=== PATIENT | female | born 1995 | race African-American/Black ===

== ENCOUNTER 2020-12-26 12:52 | Inpatient (IN) | payer MEDICAID ==
[2020-12-26] VITALS (36 sets, daily range): BP systolic 99–143; BP diastolic 49–82; PULSE 67–108; TEMP 96.7–98.1
[~2020-12-26] VITALS: Ht 154.9 cm; Wt 109.1 kg
[~2020-12-26 12:52] MED LIST: MOTRIN 600600 MG/TAB PO; PERCOCET 325 MG1 TA2 PO; PRENATAL1 TA2 PO
--- NOTE | 2020-12-26 13:00 | NUR ---
1300- Pt arrives on unit ambulatory via wheelchair, complaints of contractions since last night. Pt into bathroom to change into gown. 1309- Pt into bed, EFM and TOCO on and tracing well. O2 sat monitor on and tracing maternal HR. Pt very uncomfortable with contractions, crying. Pt reports pink discharge, denies ROM. +FM per Pt. Assessments completed. VSS.
[2020-12-26] MEDS ORDERED: PRENATAL TABLET PO (13:27)
[2020-12-26 13:58] LABS: BASO % 0.2 % (0.0-2.0); EOS # 0.1 (0.0-0.7); EOS % 0.4 % (0-4.0); GRAN % 77.4 % (42.2-75.2); HEMATOCRIT 38.4 % (37.0-47.0); HEMOGLOBIN 12.8 g/dl (12.5-16.0); LYMPH # 2.5 (1.2-3.4); LYMPH % 14.7 % (20.0-51.0); MEAN CELL VOLUME 88 fl (80.0-100.0); MEAN CORPUSCULAR HEMOGLOBIN 29 pg (27.0-31.0); MEAN CORPUSCULAR HGB CONC 33 g/dl (33.0-37.0); MEAN PLATELET VOLUME 11.3 fl (7.4-10.4); MONO # 1.2 (0.1-0.6); MONO % 6.9 % (1.7-9.3); PLATELET COUNT 308 K/mm3 (130-400); RED BLOOD COUNT 4.35 M/mm3 (4.10-5.30); REDCELL DISTRIBUTION WIDTH-CV 14.4 % (11.5-14.5)
--- NOTE | 2020-12-26 14:15 | NUR ---
1402- GREGG Davis at bedside for epidural placement. Pt assisted to sitting on side of bed. 1406- Single shot by AGING BOX HAND. 1412- Pt assisted to semi-fowlersKITA. EFM and TOCO adjusted.
[2020-12-26 15:55] LABS: TRICYCLIC ANTIDEPRESS URINE NEGATIVE
--- NOTE | 2020-12-26 17:20 | NUR ---
RN at bedside performing pericare. Pt reports "sharp" pain to vaginal area. Presses anesthesia bolus botton. Pt repositioned sitting upright. 172- Pt repositioned sitting upright HF. FHR noted in the 70s. Pt repositioned RL. Pitocin shut off. O2 monitored to differentiated MHR from FHR. SVE per this RN /-2. O2 appliied via simple mask. 1725-FHr returns to [address] Monahan notified of 3 minute FHR in the -s. Interventions performed. Provider will be on route to unit. 1735-Dr. Monahan on unit. Reviews FHR strip.
--- NOTE | 2020-12-26 17:41 | NUR ---
SVE per Dr. Monahan /2. Orders to d/c O2. Keep pitocin off until further notice.
--- NOTE | 2020-12-26 18:15 | NUR ---
REPORT RECEIVED FROM KYLE Jones RN AT 181. PATIENT RESTING IN BED. PATIENT WAS THROWING UP AT 1900 AND ZOFRAN WAS GIVEN AND A SVE WAS DONE. SVE /. AT 1940 PATIENT WAS SLEEPING AND VOMITING SUBSIDED. DR. GORDILLO CALLED FOR AN UPDATE
--- NOTE | 2020-12-26 19:08 | NUR ---
Patient sitting up in bed vomiting. Difficult tracing heart tones due to maternal position. One contraction palpated. Will continue to monitor.
--- NOTE | 2020-12-26 21:23 | NUR ---
DIFFICULTY TRACING HEART TONES AND CONTRACTIONS DUE TO MATERNAL POSITION. RN AT BEDSIDE.
[2020-12-27] VITALS (8 sets, daily range): BP systolic 110–150; BP diastolic 63–90; PULSE 75–98; TEMP 97.7–98.7
--- NOTE | 2020-12-27 08:00 | NUR ---
THIS NURSE NOTIFIES SOCIAL WORK OF PATIENT HAVING LATE CARE, PATIENT HAS POSITIVE UDS IN JULY AND ON ADMISSION 12/26/20. PATIENT MISSED MULTIPLE APPOINTMENTS AT OFFICE. WEE BAG ON BABY.
--- NOTE | 2020-12-27 10:20 | NUR ---
BRITTANY FIORE ANSWERED CALL LIGHT AND WENT TO PATIENTS ROOM. PATIENT STERNLY STATES " WHEN IS MY BABY'S HEART TEST, HEARING SCREEN AND LAB TEST? I WILL BE GOING HOME TONIGHT." ADEBAYO STATES THE LABS WILL BE DONE AT 24 HOURS OF AGE, THE HEARING SCREEN WILL BE DONE ANYTIME. ADEBAYO STATES YOUR NURSE WILL COME IN.. THIS NURSE WENT TO 208 AND ASKED IF PATIENT HAD QUESTIONS. PATIENT STATES, " ME AND MY BABY WILL BE LEAVING AT 1130 TONIGHT." THIS NURSE STATES DR GORDILLO AND DR OLMEDO WANT YOU TO STAY HERE IN THE HOSPITAL. PATIENT STATES " ME AND THE BABY ARE LEAVING AT 1130" THIS NURSE STATES, LEGALLY THE BABY CANNOT LEAVE, YOU CAN LEAVE AMA. PATIENT STATES" YOU LEGALLY CANNOT KEEP US HERE." THIS NURSE STATES I AM JUST DOING MY JOB. HELPER/DRIVER NOTIFIED
--- NOTE | 2020-12-27 10:30 | NUR ---
SOCIAL WORK AND HOUSE SUPERVISER ON UNIT DISCUSSING PLAN OF CARE
--- NOTE | 2020-12-27 13:48 | NUR ---
PATIENT WALKED OFF UNIT AND RETURNED 15 MINUTES LATER
--- NOTE | 2020-12-27 14:50 | NUR ---
SW Consult for HX of Marijuana. #[id number] 12/27/2020 ANN staffed with Nurse Cruz about patient care and waiting 24 hours to see mother. SW obtained report from nurse, nurse reports patient have several missed appointments with care and was positive for marijuana at 1 weeks according to nurse. Patient was again test and positive upon admission on 12/26/2020. Nurse reports that patient has been "nasty" with staff and others. Nurse reports that patient was told that she can not breastfeed with baby and has to pump and dump in which patient is upset about. Patient is reported to be agitated. Nurse reports that the patient (is) appropriate with baby, no emergent concerns. SW educated that we could comeback at the 24 hour kale unless there was an emergent reason for use to intervene now. SW was called back to the OB and approached by house about seeing patient. This time, nurse reports that the patient stated that she is leaving the hospital with her baby at 11:30 after testing is done. Nurse reports that she let the patient know that she could leave but the baby could not due to not being DC. ANN spoke with all of nurse and charge about emergent calls, educating that if the client is being unsafe or talking about taking off we would step in prior to the 24 hours, this would warrant a concern. SW met with patient in the room with baby and HOA Pelayo. Patient gave permission for SW to discuss concern in front of FOB. SW educated why we were there. SW confirmed address and phone numbers on facesheet, patient indicating that they patient, FOB also reside together with another child 5 years old at home who is the mother's child. Patient reports/ admits to using marijuana at the beginning of her and recent use. Client reports that she use an edible gummie but did not know that it contained THC. Client reports that she has not used substances over the course of her . Patient tested positive for Marijuana, SW waiting on WEEbag from baby that nurse stated would be processed. ANN notes patient appropriate but guarded in communication, denies having any concerns with the nurse or care she is recieving. Patient was cordial and polite, FOB was also respectful and confirmed his information. SW educated patient about CPS consult due to marijuana and what that looks like. Educated on (if) baby is postive. Staffed with [place] nurse about statues. SW did not let the patient know that they can not leave at 11:30 to avoid further agitation. Will continue to follow.
--- NOTE | 2020-12-28 01:10 | NUR ---
Discharge instructions and paperwork reviewed with patient. All questions answered. Pt verbalized understanding. Pt escorted off unit by Shannan with belongings.
--- NOTE | 2021-01-02 09:37 | NUR ---
Patient's infant's cord blood was positive for cannabinoids. tiller worker filed a CPS report # [id number] and faxed positive results to [facility].
== END 2020-12-28 01:10 | disposition home or self-care (01) | DRG 806 ==
LOC: LDRO 12:52 → LDR 13:30 → OB 12-27 03:30
PROVIDERS: ADMIT Obstetrics & Gynecology
PROC: 10D07Z6 Extraction of Products of Conception, Vacuum, Via Natural or Artificial Opening (ICD-10-PCS; principal; 2020-12-26)
PROC: 0KQM0ZZ Repair Perineum Muscle, Open Approach (ICD-10-PCS; 2020-12-26)
DX: O77.0 Labor and delivery complicated by meconium in amniotic fluid (principal); O99.324 Drug use complicating childbirth; Z37.0 Single live birth; O99.214 Obesity complicating childbirth; E66.9 Obesity, unspecified; O76 Abnormality in fetal heart rate and rhythm complicating labor and delivery; O70.0 First degree perineal laceration during delivery; Z3A.39 39 weeks gestation of pregnancy; Z91.19 Patient's noncompliance with other medical treatment and regimen
CPT/HCPCS: J2405; J2590; J2795; J7120